=== PATIENT | female | born 1965 | race Caucasian/White ===

== ENCOUNTER 2019-03-15 23:40 | Emergency (ER) | payer BC, OTHER ==
[~2019-03-15] VITALS: Wt 84.2 kg
[2019-03-15 23:48] VITALS: Wt 84.2 kg
--- NOTE | 2019-03-16 01:10 | ERD ---
ER Documentation Chief Complaint Chief Complaint BIB RA: L flank to L sided AP, vomiting x2h. hx kid stones HPI The patient is a 54-year-old female, presenting to the ER because of left lower back pain, left flank pain, radiating to the left lower quadrant that began around 7 PM. She had similar symptoms previously from kidney stone, complains of nausea and vomiting about 8 times but mostly mucus, nonbloody/nonbilious. She denies fever, chills, neck pain, chest pain, dyspnea, dysuria, dysuria, diarrhea, constipation. She does not smoke or drink Past medical history: History of kidney stones, hypertension, dyslipidemia Past surgical history: 2 ROS All systems reviewed and are negative except as per history of present illness. Medications Home Meds Active Scripts Hydrocodone/Acetaminophen (Flagler 5-325 Tablet) 1 Each Tablet, 1 TAB PO Q6H PRN for PAIN, #7 TAB Prov:DARCY KIRKPATRICK MD 03/16/19 Reported Medications Multivitamins* (Theragran*) 1 Tab Tab, 1 TAB PO DAILY, TAB 03/16/19 Lisinopril* (Lisinopril*) 10 Mg Tablet, 10 MG PO QAM, #30 TAB 03/16/19 Atorvastatin Calcium (Atorvastatin Calcium) 10 Mg Tablet, 10 MG PO QAM, #30 TAB 03/16/19 Allergies Allergies: Coded Allergies: No Known Allergy (Unverified , 03/15/19) PMhx/Soc Hx Cardiac Disorders: Yes (HTN, HYPERLIPIDEMIA) Hx Psychiatric Problems: No Hx Miscellaneous Medical Probl: No Hx Alcohol Use: Yes (OCCASSIONALLY) Hx Substance Use: No Hx Tobacco Use: No Smoking Status: Never smoker Physical Exam Vitals Vital Signs Date Temp Pulse Resp B/P (MAP) Pulse Ox O2 O2 Flow FiO2 Time Delivery Rate 03/16/19 98.0 100 14 134/75 98 Room Air 04:18 (94) 03/16/19 76 16 136/91 98 Room Air 00:25 (106) 03/15/19 98.1 69 26 148/94 97 23:48 (112) Physical Exam Const: No acute distress. Head: Atraumatic. Eyes: Normal Conjunctiva. ENT: Normal External Ears, Nose and Mouth. Neck: Full range of motion. No meningismus. Resp: Clear to auscultation bilaterally. Cardio: Regular rate and rhythm. Abd: Soft, non distended, normal bowel sounds, mild left flank tenderness, no rigidity/rebound/CVA tenderness Skin: No petechiae or rashes. Back: No midline or flank tenderness. Ext: No cyanosis, or edema. Neur: Awake and alert. No focal deficit Psych: Normal Mood and Affect. Result Diagram: 03/16/19 0037 03/16/19 0037 Results 24 hrs Laboratory Tests Test 03/16/19 00:37 03/16/19 00:48 White Blood Count 13.3 10^3/ul Red Blood Count 4.52 10^6/ul Hemoglobin 13.7 g/dl Hematocrit 40.7 % Mean Corpuscular Volume 90.0 fl Mean Corpuscular Hemoglobin 30.3 pg Mean Corpuscular Hemoglobin Concent 33.7 g/dl Red Cell Distribution Width 12.3 % Platelet Count 248 10^3/UL Mean Platelet Volume 12.1 fl Immature Granulocytes % 0.700 % Neutrophils % 88.6 % Lymphocytes % 5.6 % Monocytes % 4.7 % Eosinophils % 0.0 % Basophils % 0.4 % Nucleated Red Blood Cells % 0.0 /100WBC Immature Granulocytes # 0.090 10^3/ul Neutrophils # 11.8 10^3/ul Lymphocytes # 0.8 10^3/ul Monocytes # 0.6 10^3/ul Eosinophils # 0.0 10^3/ul Basophils # 0.1 10^3/ul Nucleated Red Blood Cells # 0.0 10^3/ul Sodium Level 146 mmol/L Potassium Level 4.3 mmol/L Chloride Level 108 mmol/L Carbon Dioxide Level 27 mmol/L Anion Gap 11 Blood Urea Nitrogen 20 mg/dl Creatinine 1.23 mg/dl Est Glomerular Filtrat Rate mL/min 46 mL/min Glucose Level 134 mg/dl Calcium Level 10.3 mg/dl Total Bilirubin 1.4 mg/dl Direct Bilirubin 0.00 mg/dl Indirect Bilirubin 1.4 mg/dl Aspartate Amino Transf (AST/SGOT) 34 IU/L Alanine Aminotransferase (ALT/SGPT) 45 IU/L Alkaline Phosphatase 103 IU/L Total Protein 8.1 g/dl Albumin 4.7 g/dl Globulin 3.40 g/dl Albumin/Globulin Ratio 1.38 Lipase 67 U/L Bedside Urine pH (LAB) 6.5 Bedside Urine Protein (LAB) 1+ Bedside Urine Glucose (UA) Negative Bedside Urine Ketones (LAB) 2+ Bedside Urine Blood 3+ Bedside Urine Nitrite (LAB) Negative Bedside Urine Leukocyte Esterase (L Negative Current Medications Medications Dose Sig/Noreen Start Time Status Last (Trade) Ordered Route PRN Stop Time Admin Dose Reason Admin Morphine 2 mg ONCE STAT 03/16/19 DC 03/16/19 Sulfate IV 01:31 01:37 (morphine) 03/16/19 01:33 Ondansetron 4 mg ONCE STAT 03/16/19 DC 03/16/19 HCl (Zofran IV 01:31 01:37 Inj) 03/16/19 01:33 Procedures/[place] [id number] Radiology Main Line: [phone] DIAGNOSTIC IMAGING REPORT Patient: JULIA GU : 1965 Age: 54 Sex: F MR #: [id number] DOS: 03/16/19 0131 Ordering MD: DARCY KIRKPATRICK MD Location: E/R Room/Bed: PROCEDURE: CT ABDOMEN/PELVIS WITHOUT CONTRAST CLINICAL INDICATION: 54-year-old female with left-sided abdominal/flank pain. TECHNIQUE: The study was performed utilizing a GE [employer] VCT 64-slice CT scanner. Direct axial sections were obtained through the abdomen and pelvis without the use of intravenous contrast material. Sagittal and coronal refo rmations were obtained. One or more of the following dose reduction techniques were utilized: automated exposure control, adjustment of the mA and/or kV according to patient's size, use of iterative reconstruction technique. DICOM images are available. The images were reviewed on a PACS workstation. CTD/vol = 15.28 mGy; Total Exam DLP = 868.29 mGy.cm. COMPARISON: None. FINDINGS: There is minimal bibasilar subsegmental atelectasis. There is no evidence for significant pleural effusion. The superior most aspect of the right lobe of the liver was not completely scanned through. The rest of the visualized liver has a normal size and contour without focal areas of abnormal density. No intrahepatic nor extrahepatic biliary ductal dilatation is seen. The gallbladder demonstrates no wall thickening nor pericholecystic fluid. No biliary stones are evident. The pancreas is without areas of abnormal attenuation. The spleen is identified and has a normal size without abnormal density. The adrenal glands are unremarkable. The right kidney is markedly atrophic. There is compensatory hypertrophy of the left kidney. There is an ovoid calcification identified adjacent to the renal artery within the hilar region measuring approximately 11 x 10 mm most likely representing a focal renal artery aneurysm. No hydroureteronephrosis nor nephroureterolithiasis is evident. The urinary bladder contains urine. There is a dilated loop of proximal small bowel within the left upper quadrant with air-fluid level. There is mild retained stool within the ascending and transverse colon without obstruction. The appendix is visualized and is without abnormal thickening or surrounding infla mmatory reaction. There is a small umbilical hernia with an opening of 7 x 8 mm containing fat. The uterus is anteflexed. There is no significant pelvic free fluid. Phleboliths are seen within the pelvis. Shotty mesenteric lymph nodes are present. The aortoiliac vessels are without aneurysmal dilatation. The osseous structures are intact. IMPRESSION: 1. Solitary dilated loop of small bowel left upper quadrant. 2. Retained stool within the proximal colon without obstruction. 3. No CT evidence for appendicitis. 4. Markedly atrophic right kidney. 5. 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 6. Shotty mesenteric lymph nodes. .Dick Barrow MD, Date Time Electronically viewed and signed by .Dick Barrow MD, on 03/16/2019 03:13 .M/ CC: DARCY KIRKPATRICK MD [id number] MEDICAL MAKING DECISION: The patient is a 54-year-old female, presenting with acute left flank pain of unclear etiology, was treated with morphine 2 mg IV for pain, Zofran 4 mg IV for nausea for nausea with good response. On multiple reevaluation, she felt well, is stable for outpatient follow-up The differential diagnoses considered include but are not limited to recently passed kidney stone, cholelithiasis, cholecystitis, choledocholithiasis, cholangitis, pancreatitis, hepatitis, gastritis, peptic ulcer disease, gastric ulcer, appendicitis, cystitis, diverticulitis, partial small bowel obstruction. Departure Diagnosis: Primary Impression: Flank pain Additional Impressions: Renal artery aneurysm Hematuria Renal insufficiency Constipation Abnormal LFTs Condition: Good Comments She was discharged with 7 tablets of Flagler 5 mg and advised to return in 8-hour for evaluation I discussed the findings with the patient. I advised the patient to follow-up with the primary physician in about 2-3 days evaluation and referral to community organization worker for further evaluation of her renal artery aneurysm and insufficiency, sooner if needed and return if any concern. Disclaimer: Inadvertent spelling and grammatical errors are likely due to EHR/dictation software use and do not reflect on the overall quality of patient care. Also, please note that the electronic time recorded on this note does not necessarily reflect the actual time of the patient encounter. DARCY KIRKPATRICK MD March 16, 2019 01:10
[2019-03-16] MEDS ORDERED: ONDANSETRON 4 MG INJ IV STA (01:31)
[2019-03-16] MEDS ORDERED: morphine 2 MG INJ IV STA (01:31)
[2019-03-16] MEDS ORDERED: MULTI PO (03:14)
[2019-03-16] MEDS ORDERED: LISI10TA2 PO (03:14)
[2019-03-16] MEDS ORDERED: ATOR10TA65 PO (03:14)
[2019-03-16] MEDS ORDERED: HYDR-4011 PO (04:04)
[2019-03-16 04:18] VITALS: BP 134/75; PULSE 100; RESP 14
== END 2019-03-16 04:18 | disposition home or self-care (01) ==
LOC: E/R 23:40
DX: K59.00 Constipation, unspecified (principal); I72.2 Aneurysm of renal artery; R31.9 Hematuria, unspecified; N28.9 Disorder of kidney and ureter, unspecified; R94.5 Abnormal results of liver function studies
CPT/HCPCS: 36415; 74176; 80053; 81003; 83690; 85025; 96374; 96375; 99285; J2270; J2405